=== PATIENT | female | born 2000 | race Caucasian/White ===

== ENCOUNTER 2020-12-15 03:46 | Observation (INO) | payer OTHER ==
[2020-12-15 05:25] VITALS: BMI 41.1
--- NOTE | 2020-12-15 09:14 | PDOC.HHP ---
Hospitalist HPI - History of Present Illness Shortness of breath History of Present Illness: Ms. Singh is a 20-year-old female with no past medical history who presents to [place] [facility] for shortness of breath. Patient COVID positive approximately 1 week ago. Symptoms began approximately 12 days ago with dry cough, myalgias, subjective fever. Patient reports for the past 2 days she has developed worsening shortness of breath first on exertion and sometimes even at rest. At outside hospital her O2 saturation was 92% on 2 L nasal cannula, and she desaturated to the 80s when walking. She denies chest pain, palpitations. Denies nausea vomiting diarrhea. No history of asthma or respiratory disease. 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 Of note she did receive the COVID vaccine the same day which her symptoms began. In emergency room initial vital signs 104/74, 94, 22, 98.0, 94% on 2 L nasal cannula. WBC 4.7. H/H 13.1/40.1 lactic acid 1.7, BUN/CR 11/0.72. Chest x-ray showed bilateral patchy infiltrates consistent with COVID-19 pneumonia. Patient received 1 dose of ceftriaxone, Decadron, 1 L of normal saline and 325 mg of aspirin. Patient transferred to [facility] for further monitoring and management of her COVID-19 pneumonia. Hospitalist ROS - Review of Systems Constitutional: reports: fever, chills, weakness, malaise Eyes: denies: pain, vision change, conjunctivae inflammation, eyelid inflammation, redness, other ENT: denies: ear pain, ear discharge, nose pain, nose discharge, nose co ngestion, mouth pain, mouth swelling, throat pain, throat swelling, other Respiratory: reports: cough, shortness of breath, SOB with excertion. denies: dry, hemoptysis, pleuritic pain, sputum, wheezing, other Cardiovascular: denies: chest pain, palpitations, orthopnea, paroxysmal noc. dyspnea, edema, light headedness, other Gastrointestinal: denies: nausea, vomiting, abdominal pain, diarrhea, constipation, melena, hematochezia, other Genitourinary: denies: dysuria, frequency, incontinence, hematuria, retention, other Musculoskeletal: denies: neck pain, shoulder pain, arm pain, back pain, hand pain, leg pain, foot pain, other Skin: denies: rash, lesions, jenni, bruising, other Neurological: denies: weakness, numbness, incoordination, change in speech, confusion, seizures, other - Medication Medications: Home medications include Cymbalta Allergies to penicillin Hospitalist History - Past Medical History Other Medical History: Past medical history of depression - Past Surgical History Other Surgical History: No past surgical history - Family History Other Family History: Reports family history of diabetes - Social History Smoking Status: Never smoker Alcohol: reports: None Drugs: reports: none Living Situation: With Family Activity level: independent ambulation - Exam General Appearance: NAD, awake alert General - other findings: Comfortable on 2 L nasal cannula Eye: PERRL, anicteric sclera ENT: normocephalic atraumatic, no oropharyngeal lesions, moist mucosa Neck: supple, symmetric, no JVD, no thyromegaly, no lymphadenopathy, no carotid bruit Heart: RRR, no murmur, no gallops, no rubs, normal peripheral pulses Respiratory: CTAB, no wheezes, no rales, no ronchi, normal chest expansion, no tachypnea, normal percussion Gastrointestinal: soft, non-tender, non-distended, normal bowel sounds, no palpable masses, no hepatomegaly, no splenomegaly, no bruit Extremities: no cyanosis, no clubbing, no edema Skin: normal turgor, no lesions, no rashes Neurological: cranial nerve grossly intact, normal sensation to touch, no weakness, no focal deficits, no new deficit Musculoskeletal: normal tone, normal strength, no muscle wasting Psychiatric: normal affect, normal behavior, A&O x 3 Hospitalist H&P A/P - Plan Plan: COVID-19 pneumonia 20-year-old female with no past medical history first tested positive for COVID- 19 pneumonia approximately 1 week ago. Symptoms began 12 days ago. Of note patient is a healthcare worker at the [employer] and received the Covid vaccine on the same day her symptoms began. She endorses fever, myalgias, cough. Shortness of breath and dyspnea began approximately 2 days ago and has been worsening. Patient now requiring 2 L of oxygen nasal cannula to maintain O2 saturation. She is out of the window for remdesivir, but will start Decadron. Patient appears comfortable on 2L. Will attempt to wean. Plan -Decadron -Supplemental oxygen -Tylenol, Robitussin -Vitamin C, vitamin D, zinc -We will obtain baseline inflammatory markers Acute hypoxic respiratory failure Patient with acute hypoxic respiratory failure secondary to moderate to severe COVID-19 pneumonia. Patient with new oxygen requirement now on 2 L of oxygen nasal cannula to maintain O2 sat. We will continue supplemental oxygen and closely monitor respiratory status. Treatment as above. Plan -Supplemental oxygen -Treatment as above -Closely monitor respiratory status Anxiety/depression Continue home Celexa Full code Case discussed with attending physician, Dr. Summers.
[2020-12-15] MEDS ORDERED: Guaifenesin DM 100-10/5 ML UDCUP PO PRN (09:18)
[2020-12-15] MEDS ORDERED: Acetaminophen 325 MG TAB PO PRN (09:18)
[2020-12-15] MEDS ORDERED: Acetaminophen 650 MG Suppository PR PRN (09:18)
[2020-12-15] MEDS: DULoxetine 60 MG CAP PO SCH (10:01)
[2020-12-15] MEDS: Zinc Sulfate 220 MG CAP PO SCH (10:01)
[2020-12-15] MEDS: Ascorbic Acid 500 mg Chewable Tablet PO SCH (10:02)
[2020-12-15] MEDS: Cholecalciferol (Vitamin D3) 400 UNITS TAB PO SCH (10:02)
[2020-12-16 06:41] LABS: #Lymphocytes 1.9 thou/uL (1.20-3.40); #Monocytes 0.2 thou/uL (0.11-0.59); #Neutrophils 1.6 thou/uL (1.40-6.50); %Basophils 0.2 % (0.0-1.0); %Eosinophils 0.3 % (0.0-10.0); %Lymphocytes 49.7 % (21.0-51.0); %Monocytes 6.4 % (0.0-10.0); %Neutrophils 43.3 % (42.0-75.0); Hemoglobin 12.5 g/dL (12.0-16.0); Mean Corpuscular HGB CONC 33.5 g/dL (32.0-36.0); Mean Corpuscular Hemoglobin 30.6 pg (27.0-31.0); Mean Corpuscular Volume 91.5 fL (78.0-98.0); Platelet Count 172 thou/uL (130-400); RBC Distribution Width 12.4 % (11.5-14.5); Red Blood Cell (RBC) Count 4.07 mill/uL (4.20-5.40); White Blood Cell (WBC) Count 3.8 thou/uL (4.8-10.8)
[2020-12-16 07:02] LABS: Anion Gap 14 mmol/L (10-20); BUN (Urea Nitrogen) 15 mg/dL (7.0-18.7); Calc. Creatinine Clearance 241 mL/min (70-130); Calcium 8.4 mg/dL (7.8-10.44); Carbon Dioxide 24 mmol/L (22-29); Chloride 104 mmol/L (98-107); Glucose 73 mg/dL (70-105); Potassium 4.2 mmol/L (3.5-5.1); Sodium 138 mmol/L (136-145)
[2020-12-16] MEDS ORDERED: Albuterol Sulfate 2.5 mg/3 ml Neb IPPB PRN (07:14)
[2020-12-16] MEDS: Dexamethasone 4 MG TAB PO SCH (07:49)
[2020-12-16] MEDS: Zinc Sulfate 220 MG CAP PO SCH (07:49)
[2020-12-16] MEDS: Ascorbic Acid 500 mg Chewable Tablet PO SCH (07:49)
[2020-12-16] MEDS: Cholecalciferol (Vitamin D3) 400 UNITS TAB PO SCH (07:49)
[2020-12-16] MEDS: DULoxetine 60 MG CAP PO SCH (07:49)
--- NOTE | 2020-12-16 08:14 | PDOC.HOSPP ---
- Subjective Encounter Date: 12/16/20 Encounter Time: 08:13 Subjective: No overnight events. Patient reports her breathing feels improved from yesterday, but continues to endorse SOB and cough. Is currently on 1.5 L NC.Denies chest pain, abdominal pain. Denies N/V/D. Chart and medications reviewed. - Objective Vital Signs & Weight: Vital Signs (12 hours) Temp Pulse Resp BP BP Pulse Ox 12/16/20 07:16 98.2 F 87 20 125/68 94 L 12/16/20 05:07 98.0 F 79 18 109/76 97 12/16/20 00:52 97.9 F 83 18 111/74 95 Weight Weight 263 lb I&O: 12/15/20 12/16/20 12/17/20 06:59 06:59 06:59 Intake Total 1080 Balance 1080 Result Diagrams: 12/16/20 06:01 12/16/20 06:01 Hospitalist ROS - Review of Systems Constitutional: reports: fever, weakness, malaise Eyes: denies: vision change ENT: reports: nose congestion, throat pain Respiratory: reports: cough, dry, shortness of breath, SOB with excertion. denies: pleuritic pain, sputum, wheezing Cardiovascular: denies: chest pain, palpitations, orthopnea, paroxysmal noc. dyspnea, edema, light headedness, other Gastrointestinal: denies: nausea, vomiting, abdominal pain, diarrhea, constipation, melena, hematochezia, other Genitourinary: denies: dysuria Musculoskeletal: denies: neck pain, shoulder pain, arm pain, back pain, hand pain, leg pain, foot pain, other Skin: denies: rash, lesions Neurological: denies: weakness, numbness - Medication Medications: Active Medications Generic Name Dose Route Start Last Admin Trade Name Freq PRN Reason Stop Dose Admin Acetaminophen 650 mg 12/15/20 09:18 12/15/20 10:51 Acetaminophen 325 Mg Tab PO 650 mg Q4H PRN Administration Headache/Fever/Mild Pain (1-3) Ascorbic Acid 1,000 mg 12/15/20 09:00 12/16/20 07:49 Ascorbic Acid 500 Mg Chewable Tablet PO 1,000 mg DAILY WILLA Administration Cholecalciferol 400 units 12/15/20 09:00 12/16/20 07:49 Cholecalciferol (Vitamin D3) 400 Units Tab PO 400 units DAILY WILLA Administration Dexamethasone 6 mg 12/16/20 08:00 12/16/20 07:49 Dexamethasone 4 Mg Tab PO 6 mg QAM-WM WILLA Administration Duloxetine HCl 60 mg 12/15/20 09:00 12/16/20 07:49 Duloxetine 60 Mg Cap PO 60 mg DAILY WILLA Administration Zinc Sulfate 220 mg 12/15/20 09:00 12/16/20 07:49 Zinc Sulfate 220 Mg Cap PO 220 mg DAILY WILLA Administration - Exam General Appearance: NAD, awake alert General - other findings: Comfortable on 1.5 L NC Eye: PERRL, anicteric sclera ENT: normocephalic atraumatic, no oropharyngeal lesions, moist mucosa Neck: supple, symmetric, no JVD, no thyromegaly, no lymphadenopathy, no carotid bruit Heart: RRR, no murmur, no gallops, no rubs, normal peripheral pulses Respiratory: no wheezes, normal chest expansion, no tachypnea Respiratory - other findings: Rales throughout Gastrointestinal: soft, non-tender, non-distended, normal bowel sounds, no palpable masses, no hepatomegaly, no splenomegaly, no bruit Extremities: no cyanosis, no clubbing, no edema Skin: normal turgor, no lesions, no rashes Neurological: normal sensation to touch, no weakness, no focal deficits, no new deficit Musculoskeletal: normal tone, normal strength, no muscle wasting Psychiatric: normal affect, normal behavior, A&O x 3 Hosp A/P - Plan COVID-19 pneumonia 20-year-old female with no past medical history first tested positive for COVID- 19 pneumonia approximately 1 week ago. Symptoms began 12 days ago. Of note patient is a healthcare worker at the [employer] and received the Covid vaccine on the same day her symptoms began. She endorses fever, myalgias, cough. Shortness of breath and dyspnea began approximately 2 days ago and has been worsening. Patient initially requiring 2 L of oxygen nasal cannula to maintain O2 saturation. She is out of the window for remdesivir, but will start Decadron. Patient appears comfortable on 2L. Attempted to wean, however patient still requiring 1.5 L NC. Plan -Decadron -Supplemental oxygen -Tylenol, Robitussin -Vitamin C, vitamin D, zinc Acute hypoxic respiratory failure Patient with acute hypoxic respiratory failure secondary to moderate to severe COVID-19 pneumonia. Patient with new oxygen requirement now on 1.5 L of oxygen nasal cannula to maintain O2 sat. We will continue supplemental oxygen and closely monitor respiratory status. Treatment as above. Plan -Supplemental oxygen -Treatment as above -Closely monitor respiratory status Anxiety/depression Continue home Celexa Full code Case discussed with attending physician, Dr. Rice.
[2020-12-16] MEDS ORDERED: Enoxaparin Sodium 40 MG/0.4 ML SYRINGE SC SCH (09:00)
[2020-12-17] MEDS: Cholecalciferol (Vitamin D3) 400 UNITS TAB PO SCH (08:19)
[2020-12-17] MEDS: DULoxetine 60 MG CAP PO SCH (08:20)
[2020-12-17] MEDS: Zinc Sulfate 220 MG CAP PO SCH (08:20)
[2020-12-17] MEDS: Dexamethasone 4 MG TAB PO SCH (08:20)
[2020-12-17] MEDS: Ascorbic Acid 500 mg Chewable Tablet PO SCH (08:20)
--- NOTE | 2020-12-17 17:05 | PDOC.DS.DS ---
Provider Date of Admission: 12/15/20 05:23 Date of Discharge: 12/17/20 Admitting Provider: Forrest Summers MD Primary Care Physician: RENEE Rodriguez Course Hospital Course: HISTORY OF PRESENT ILLNESS ON ADMISSION Ms. Singh is a 20-year-old female with no past medical history who presents to [facility] for shortness of breath. Patient COVID positive approximately 1 week ago. Symptoms began approximately 12 days ago with dry cough, myalgias, subjective fever. Patient reports for the past 2 days she has developed w orsening shortness of breath first on exertion and sometimes even at rest. At outside hospital her O2 saturation was 92% on 2 L nasal cannula, and she desaturated to the 80s when walking. She denies chest pain, palpitations. Denies nausea vomiting diarrhea. No history of asthma or respiratory disease. 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 Of note she did receive the COVID vaccine the same day which her symptoms began. In emergency room initial vital signs 104/74, 94, 22, 98.0, 94% on 2 L nasal cannula. WBC 4.7. H/H 13.1/40.1 lactic acid 1.7, BUN/CR 11/0.72. Chest x-ray showed bilateral patchy infiltrates consistent with COVID-19 pneumonia. Patient received 1 dose of ceftriaxone, Decadron, 1 L of normal saline and 325 mg of a spirin. Patient transferred to [facility] for further monitoring and management of her COVID-19 pneumonia. BRIEF HOSPITAL COURSE Ms. Singh is a 20F with no PMHx who was initially presented to [facility] for SOB, ultimately found to have COVID-19 Pneumonia. Her symptoms began approximately two weeks ago with a dry cough, myalgias, and a subjective fever. Patient on presentation to [facility] required 2L NC to maintain her oxygenation saturation at rest. Her CXR showed mild bilateral patchy infiltrates. She was treated with ceftriaxone, decadron, and aspirin. Her symptoms improved and she was able to maintain her O2 saturation comfortably on RA. On a walking trial, Ms. Singh desaturated to 86%, but quickly recovered. Given her overall good health, and mild case of COVID, she was felt to be a good candidate for home oxygen. She was discharged on home oxygen at 2L NC when she is ambulating. 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 Also the patient's mother is a nurse who is able to assist with her oxygen. Patient displays good understanding of the safe use of home oxygen and understood that she should return if her SOB worsens or if her O2 saturation decreases. Patient determined to be medically safe for discharge on home oxygen. Case was discussed with attending physician, Dr. Rice, who is in agreement that patient is medically safe for discharge home on oxygen. Resuscitation Status: 12/15/20 09:18 Resuscitation Status Routine Co-Sign Provider: Resuscitation Status: FULL: Full Resuscitation Lab Results: 12/16/20 06:01 12/16/20 06:01 Abnormal Lab Results - Last 48 hrs 12/16/20 06:01: WBC 3.8 L, RBC 4.07 L, MPV 7.0 L Vitals: Vital Signs (12 hours) Temp Pulse Resp BP BP Pulse Ox 12/17/20 15:54 98.3 F 52 L 16 126/85 95 12/17/20 07:30 97.8 F 68 17 114/79 94 L Weight Weight 260 lb Physical Exam: The patient was seen and examined on the day of discharge. NAD, AOx3 Normocephalic, atraumatic Neck supple, no JVD, no lymphadenopathy RRR, no murmurs, rubs, or gallops Lungs CTAB, no wheezes, no dyspnea or tachypnea Abdomen soft, non-tender with normoactive bowel sounds Skin warm with no rashes, normal turgor Extremities with no edema and intact peripheral pulses Normal tone and muscle strength No focal deficits, no weakness Problem Assessment: COVID-19 pneumonia 20-year-old female with no past medical history first tested positive for COVID- 19 pneumonia approximately 1 week ago. Symptoms began 12 days ago. Of note patient is a healthcare worker at the [employer] and received the Covid vaccine on the same day her symptoms began. She endorses fever, myalgias, cough. Sh ortness of breath and dyspnea began approximately 2 days ago and has been worsening. Patient initially requiring 2 L of oxygen nasal cannula to maintain O2 saturation. Now has maintained good oxygen saturation on RA for over 24 hours. Desaturating to 86% on ambulation. Will send home on oxygen which has been set up with home health. Plan -Continue Decadron for 8 days -Home oxygen -Tylenol, Robitussin as needed -Return precautions -F/u with PCP in one week Anxiety/depression Continue home Celexa Case discussed with attending physician, Dr. Rice who is in agreement that patient is medically safe for discharge with home oxygen. Plan Prescriptions: Dexamethasone [Decadron] 6 mg PO QAM-WM 8 Days #8 tab Home Medications: Medication Instructions Recorded Confirmed Type Albuterol Sulfate [Proair 90 mcg INH Q6H 12/15/20 12/15/20 History Digihaler] Benzonatate 100 mg PO TID 12/15/20 12/15/20 History DULoxetine [Cymbalta] 60 mg PO DAILY 12/15/20 12/15/20 History Dexamethasone [Decadron] 6 mg PO QAM 12/15/20 12/15/20 History Naproxen 500 mg PO TID 12/15/20 12/15/20 History Dexamethasone [Decadron] 6 mg PO QAM-WM 8 Days #8 tab 12/17/20 Rx Allergies: Penicillins Allergy (Verified 12/15/20 05:25) Discharge Instructions:: You are being discharged from the hospital on home oxygen. Please use this oxygen at 2L. Please also keep track of your O2 saturation with a pulse ox monitor. Return to the hospital immediately or call 911 if you experience worsening shortness of breath, or find your O2 saturation to be consistently less than 92%. Please also go to the nearest emergency room if you have any new or worsening symptoms. You have also been given a prescription for a steroid medication called [place]. Please take one tablet daily with meals for the next eight days. You will also need to follow up with your primary care provider in one week. Activity:: Activity as Tolerated Nourishment:: Regular Diet Equipment/Supplies:: Oxygen Referrals: [facility] [Outside] Aba Chase FNP [Primary Care Provider] - 7 Days Disposition: HOME Quality CORE MEASURES:: N/A
[2020-12-17 18:23] VITALS: BP 112/75; TEMP 98.6
== END 2020-12-17 17:53 | disposition home or self-care (01) ==
LOC: T4-B 05:23
PROVIDERS: ADMIT Student in an Organized Health Care Education/Training Program; ATTEND Internal Medicine
DX: U07.1 COVID-19 (principal); J12.82 Pneumonia due to coronavirus disease 2019; J96.01 Acute respiratory failure with hypoxia; F41.9 Anxiety disorder, unspecified; F32.9 Major depressive disorder, single episode, unspecified; Z79.52 Long term (current) use of systemic steroids; Z79.899 Other long term (current) drug therapy; Z88.0 Allergy status to penicillin
CPT/HCPCS: 36415; 80048; 82728; 85025; 86140; G0378; J8540

== ENCOUNTER 2023-07-11 12:36 | Outpatient (CLI) | payer BC | END 2023-07-11 12:37 | disposition home or self-care (01) | LOC: BICMRI 12:36 | PROVIDERS: ATTEND Registered Nurse Hospice | DX: M51.16 Intervertebral disc disorders with radiculopathy, lumbar region (principal) | CPT/HCPCS: 72148 ==

== ENCOUNTER 2024-09-05 19:05 | Emergency (ER) | payer BC ==
[2024-09-05 19:42] LABS: #Basophils 0.04 10x3/uL (0.0-0.2); %Basophils 0.7 % (0.0-1.0); %Eosinophils 0.5 % (0.0-10.0); %Lymphocytes 30.2 % (21.0-51.0); %Monocytes 5.5 % (0.0-10.0); %Neutrophils 62.9 % (42.0-75.0); Hematocrit 40.1 % (36.0-47.0); Hemoglobin 13.4 g/dL (12.0-16.0); Mean Corpuscular HGB CONC 33.4 g/dL (32.0-36.0); Mean Corpuscular Hemoglobin 29.9 pg (27.0-31.0); Mean Corpuscular Volume 89.5 fL (78.0-98.0); Platelet Count 311 10x3/uL (130-400); RBC Distribution Width 13.6 % (11.5-14.5); Red Blood Cell (RBC) Count 4.48 mill/uL (4.20-5.40)
[2024-09-05 20:02] LABS: ALT (SGPT) 23 U/L (8-55); AST (SGOT) 16 U/L (5-34); Acetaminophen Less than 10 mcg/mL (Less than 10); Albumin 4.1 g/dL (3.5-5.0); Alcohol Less than 10.0 mg/dL (Less than 10); Alkaline Phosphatase 53 U/L (40-110); Anion Gap 11 mmol/L (10-20); BUN (Urea Nitrogen) 8 mg/dL (7.0-18.7); Bilirubin, Total 0.7 mg/dL (0.2-1.2); Calc. Creatinine Clearance 0 mL/min (70-130); Calcium 9.5 mg/dL (7.8-10.44); Carbon Dioxide 23 mmol/L (22-29); Chloride 108 mmol/L (98-107); Estimated GFR 101; Globulin 3.3 g/dL (2.4-3.5); Glucose 127 mg/dL (70-105); Protein, Total 7.4 g/dL (6.0-8.3); Salicylate Less than 8.0 mg/dL (Less than 8.0); Sodium 138 mmol/L (136-145)
[2024-09-05 20:03] LABS: Bacteria/HPF None Seen HPF (None Seen); Bilirubin Negative (Negative); Blood, Urine Negative (Negative); CAUTI Indications for Culture < 2yrs of age; Clarity Clear (Clear); Glucose, Urine (Dipstick) Normal (Negative); Ketone, Urine Negative (Negative); Leukocyte Negative Leu/uL (Negative); Nitrite Negative (Negative); Protein, Urine (Dipstick) Negative (Neg-Trace); RBC/HPF 0-3 HPF (0-3); Specific Gravity, Urine 1.009 (1.002-1.036); Squamous Epithelial None Seen HPF (0-3); Urobilinogen Normal mg/dL (Less than 2); WBC/HPF 0-3 HPF (0-3); pH, Urine 7.5 (5.0-9.0)
[2024-09-05 20:10] LABS: Amphetamine Not Detected (NotDetected); Barbiturates Screen Not Detected (NotDetected); Benzodiazepine Screen Not Detected (NotDetected); Cocaine Metabolite Screen Not Detected (NotDetected); Methadone Not Detected (NotDetected); Methamphetamine Not Detected (NotDetected); Opiate Screen Not Detected (NotDetected); Oxycodone Screen Not Detected (NotDetected); Phencyclidine (PCP) Not Detected (NotDetected); Pregnancy Test - Urine (BHCG) Negative (Negative); THC/Cannabinoid Screen Detected (NotDetected); Tricyclic Screen Detected (NotDetected)
[2024-09-05 20:11] LABS: Pregu Control Background? CLEAR/WHITE (CLR/WHITE); Pregu Control Bar Appear? YES (CONTROL BAR); Specific Gravity 1.009 (1.002-1.036); Urine Culture Reflex No No; Urine Culture Reflex Yes Yes
== END 2024-09-05 23:00 | disposition home or self-care (01) ==
LOC: ERS 19:05
DX: R45.851 Suicidal ideations (principal); F32.A Depression, unspecified; F17.290 Nicotine dependence, other tobacco product, uncomplicated; Z79.899 Other long term (current) drug therapy
CPT/HCPCS: 36415; 80053; 80306; 80307; 81001; 81025; 84443; 85025; 87086; 93005; 99285